=== PATIENT | male | born 1940 | race Caucasian/White ===

== ENCOUNTER 2016-08-22 07:18 | Day surgery (SDC) | payer MEDICARE, OTHER ==
[2016-08-22] MEDS ORDERED: Lactated Ringers 1,000 ML IV SCH (08:15)
[2016-08-22] MEDS ORDERED: Midazolam 1 MG/ML 2 ML SDV IV ONE (08:30)
[2016-08-22] MEDS ORDERED: Lidocaine 2% 100 MG/5 ML Syringe IVPUSH ONE (08:30)
[2016-08-22] MEDS ORDERED: Propofol 200 MG/20 ML SDV IV ONE (08:30)
--- NOTE | 2016-08-22 09:09 | PCM.OPNOTE ---
- General Post-Op/Procedure Note Date of Surgery/Procedure: 08/22/16 Operative Procedure(s): c scope Findings: normal colon Pre Op Diagnosis: screening Post-Op Diagnosis: nl scope Anesthesia Technique: MAC Primary Surgeon: Cong Weller Anesthesia Provider: Lizz Sarmiento Complications: None Condition: Good Free Text/Narrative:: see dictation
--- NOTE | 2016-08-22 09:30 | OR ---
DATE OF OPERATION: 08/22/2016 SURGEON: Cong Weller MD PROCEDURE PERFORMED: Colonoscopy. PREOPERATIVE DIAGNOSIS: Screening C-scope. POSTOPERATIVE DIAGNOSIS: Normal colon. INDICATIONS FOR PROCEDURE: This is a 76-year-old white male who presents for a followup colonoscopy. He was offered and accepted same. DESCRIPTION OF OPERATION: After an excellent IV sedation was administered, digital rectal exam was performed. No marked abnormality was noted. Flexible colonoscope was inserted and advanced to the cecum. The prep was good. There were some areas of stool, but we were able to irrigate and clear, and get an excellent view of the mucosa. The following findings were noted. Ascending colon, unremarkable. Transverse colon, unremarkable. Descending colon, unremarkable. Sigmoid and rectum, unremarkable. Colon was deflated as the scope was removed. The patient tolerated the procedure well and was taken to recovery room in good condition. /[id number] /MODL
[2016-08-22 09:33] VITALS: BP 136/71
== END 2016-08-22 10:07 | disposition home or self-care (01) ==
LOC: FB.SDS 07:18
PROVIDERS: ATTEND Surgery
DX: Z12.11 Encounter for screening for malignant neoplasm of colon (principal); Z86.010 Personal history of colon polyps; E66.9 Obesity, unspecified; Z68.30 Body mass index [BMI] 30.0-30.9, adult; E78.1 Pure hyperglyceridemia; E11.42 Type 2 diabetes mellitus with diabetic polyneuropathy; I10 Essential (primary) hypertension; I73.9 Peripheral vascular disease, unspecified; E79.0 Hyperuricemia without signs of inflammatory arthritis and tophaceous disease; E78.5 Hyperlipidemia, unspecified; N40.1 Benign prostatic hyperplasia with lower urinary tract symptoms; N13.8 Other obstructive and reflux uropathy; Z88.8 Allergy status to other drugs, medicaments and biological substances; Z79.01 Long term (current) use of anticoagulants; Z79.899 Other long term (current) drug therapy; G47.33 Obstructive sleep apnea (adult) (pediatric); G47.10 Hypersomnia, unspecified; Z94.0 Kidney transplant status; Z94.4 Liver transplant status; Z90.49 Acquired absence of other specified parts of digestive tract; Z96.60 Presence of unspecified orthopedic joint implant; F17.210 Nicotine dependence, cigarettes, uncomplicated
CPT/HCPCS: 00902; 82962; G0105; J2250; J2704; J7120

== ENCOUNTER 2017-02-19 11:54 | Inpatient (IN) | payer MEDICARE, OTHER ==
[2017-02-19] MEDS ORDERED: Albuterol 8 GM Inhaler INH PRN (17:19)
[2017-02-19] MEDS ORDERED: Warfarin Sliding Scale PO SCH (17:45)
[2017-02-19] MEDS: Acetaminophen 500 MG Tab PO SCH ×2 (17:46→23:49)
--- NOTE | 2017-02-19 18:24 | PCM.HP ---
H&P History of Present Illness - General Date of Service: 02/19/17 Admit Problem/Dx: Admission Diagnosis/Problem Admission Diagnosis/Problem Weakness Source of Information: Patient, Old Records History Limitations: Reports: No Limitations - History of Present Illness Initial Comments - Free Text/Narative: This is a 76-year-old male patient was transferred to [facility]. He was initially sent him to [place] because of a pneumonia and found to have a lung mass. He was treated and sent home. He felt very weak and went back of the hospital in [place] got readmitted. Then he went home on home health and then start him chest pain and and at the hospital again. He was ruled out for cardiac disease and they felt the troponins possibly due to his chronic kidney failure. He has a history of kidney and liver transplant. He has shortness of breath little cough and occasional little sputum that's pinkish. He's not any antibodies. He is so weak he is here for rehabilitation and strengthening. - Related Data Allergies/Adverse Reactions: Allergies Allergy/AdvReac Type Severity Reaction Status Date / Time meperidine [From Demerol] Allergy Nausea Verified 02/19/17 15:37 Fojwxlj-Ply-Wff Reductase Allergy Other Verified 02/19/17 15:37 Inhibitor Home Medications: Home Meds Albuterol [IJD: Ventolin HFA] 2 puff INH Q4H PRN 08/21/16 [History] Magnesium Oxide [Magnesium] 500 mg PO DAILY 08/21/16 [History] Metoprolol Tartrate [Lopressor] 12.5 mg PO DAILY 08/21/16 [History] Mycophenolate Mofetil [Cellcept] 1,000 mg PO BID 08/21/16 [History] Tacrolimus [Prograf] 1 mg PO Q12H 08/21/16 [History] Warfarin [Coumadin] 5 mg PO MOWEFR 08/21/16 [History] Acetaminophen 500 mg PO Q6H 02/19/17 [History] Umeclidinium Brm/Vilanterol Tr [Anoro Ellipta 62.5-25 Mcg INH] 1 puff IH BEDTIME 02/19/17 [History] Warfarin [Coumadin] 2.5 mg PO SUTUTHSA 02/19/17 [History] oxyCODONE 5 mg PO Q4H PRN 10/26/17 [History] Past Medical History HEENT History: Reports: Impaired Vision, Other (See Below) 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 Cardiovascular History: Reports: Blood Clots/VTE/DVT, High Cholesterol, Hypertension, PVD Respiratory History: Reports: Other (See Below) Other Respiratory History: lung cander Gastrointestinal History: Reports: Cirrhosis, Other (See Below) Other Gastrointestinal History: HX OF BUDD-CHIARI Genitourinary History: Reports: Prostate Disorder, Renal Disease, Retention, Urinary MATERIAL DISPATCHER History: Reports: None Musculoskeletal History: Reports: None Neurological History: Reports: None Psychiatric History: Reports: None Endocrine/Metabolic History: Reports: Diabetes, Type II, Obesity/BMI 30+ Hematologic History: Reports: Anticoagulation Therapy, Blood Transfusion(s) Immunologic History: Reports: Solid Organ Transplant Other Immunologic History: HX LIVER ET KIDNEY TRANSPLANT Oncologic (Cancer) History: Reports: None Dermatologic History: Reports: None - Infectious Disease History Infectious Disease History: Reports: Chicken Pox, Influenza, Measles - Past Surgical History Head Surgeries/Procedures: Reports: None HEENT Surgical History: Reports: None, Other (See Below) Respiratory Surgical History: Reports: Lung Biopsies Male Surgical History: Reports: TURP-Transurethral Resection of Prostate Musculoskeletal Surgical History: Reports: Joint Replacement Social & Family History - Family History HEENT: Reports: None Cardiac: Reports: VT - Tobacco Use Smoking Status *Q: Former Smoker Years of Tobacco use: 40 Used Tobacco, but Quit: Yes Month Tobacco Last Used: 1 week ago - Caffeine Use Caffeine Use: Reports: Coffee - Recreational Drug Use Recreational Drug Use: No Drug Use in Last 12 Months: No H&P Review of Systems - Review of Systems: Review Of Systems: See Below General: Reports: Weakness, Fatigue, Decreased Appetite HEENT: Reports: Other (Rhinorrhea) Pulmonary: Reports: Shortness of Breath, Cough, Sputum Cardiovascular: Reports: Chest Pain (That's improving), Dyspnea on Exertion. Denies: Edema Gastrointestinal: Reports: Diarrhea Genitourinary: Reports: No Symptoms Musculoskeletal: Reports: No Symptoms Skin: Reports: No Symptoms Psychiatric: Reports: No Symptoms Neurological: Reports: No Symptoms Hematologic/Lymphatic: Reports: No Symptoms Immunologic: Reports: No Symptoms Exam - Exam Exam: See Below - Vital Signs Vital Signs: Last Vital Signs Temp 97.7 F 02/19/17 15:21 Pulse 81 02/19/17 15:21 Resp 20 10/26/17 15:21 BP 125/65 02/19/17 15:21 Pulse Ox 98 02/19/17 15:21 Weight: 165 lb - Exam Quality Assessment: Supplemental Oxygen General: Alert, Oriented, Cooperative, Severe Distress HEENT: Hearing Intact, Posterior Pharynx Clear, TMs Clear Neck: Supple, Trachea Midline Lungs: Normal Respiratory Effort, Decreased Breath Sounds (left) Cardiovascular: Regular Rate, Regular Rhythm. No: Systolic Murmur GI/Abdominal Exam: Normal Bowel Sounds, Soft, Non-Tender, No Distention Extremities: Normal Range of Motion, No Pedal Edema Skin: Warm, Intact Neuro Extensive - Mental Status: Alert, Oriented x3, Normal Mood/Affect, Normal Cognition - Patient Data Lab Results Last 24 hrs: Laboratory Results - last 24 hr 02/19/17 Range/Units 17:06 POC Glucose 103 (80-116) mg/dL *Q Meaningful Use (ADM) - VTE *Q VTE Criteria *Q: - Stroke *Q Stroke Criteria *Q: - AMI *Q AMI Criteria *Q: - Problem List (1) Lung cancer SNOMED Code(s): 240868452 ICD Code: C34.90 - MALIGNANT NEOPLASM OF UNSP PART OF UNSP BRONCHUS OR LUNG Status: Acute Current Visit: Yes (2) Chest pain SNOMED Code(s): 03222184 ICD Code: R07.9 - CHEST PAIN, UNSPECIFIED Status: Acute Current Visit: Yes (3) Chronic kidney disease SNOMED Code(s): 469241412 ICD Code: N18.9 - CHRONIC KIDNEY DISEASE, UNSPECIFIED Status: Acute Current Visit: Yes Problem List Initiated/Reviewed/Updated: Yes Orders Last 24hrs: Active Orders 24 hr Category Date Time Status Patient Status [ADT] Routine ADT 02/19/17 15:23 Active Anticoag Warfarin Education *Q [RC] DAILY Care 02/19/17 15:22 Active Blood Glucose Check, Bedside [RC] QIDACANDBED Care 02/19/17 15:22 Active Oxygen Therapy [RC] PRN Care 02/19/17 15:23 Active Up ad Christine [RC] ASDIRECTED Care 02/19/17 15:22 Active VTE/DVT Education [RC] Per Unit Routine Care 02/19/17 15:23 Active Vital Signs [RC] DAILY Care 02/19/17 15:23 Active Consult to Bead Picker [CONS] Routine Cons 02/19/17 15:22 Active OT Evaluation and Treatment [CONS] Routine Cons 02/19/17 15:22 Active PT Evaluation and Treatment [CONS] Routine Cons 02/19/17 15:22 Active Respiratory Care Assess and Treatment [CONS] Routine Cons 02/19/17 15:22 Active Consistent Carbohydrate Diet [DIET] Diet 02/19/17 Lunch Active INR,PT,PROTHROMBIN TIME [COAG] DAILY Lab 02/20/17 06:00 Ordered INR,PT,PROTHROMBIN TIME [COAG] DAILY Lab 02/21/17 06:00 Ordered INR,PT,PROTHROMBIN TIME [COAG] DAILY Lab 02/22/17 06:00 Ordered INR,PT,PROTHROMBIN TIME [COAG] DAILY Lab 02/23/17 06:00 Ordered INR,PT,PROTHROMBIN TIME [COAG] DAILY Lab 02/24/17 06:00 Ordered INR,PT,PROTHROMBIN TIME [COAG] DAILY Lab 02/25/17 06:00 Ordered INR,PT,PROTHROMBIN TIME [COAG] DAILY Lab 02/26/17 06:00 Ordered INR,PT,PROTHROMBIN TIME [COAG] Routine Lab 02/21/17 06:00 Ordered Acetaminophen [Tylenol Extra Strength] Med 02/19/17 18:00 Active 500 mg PO Q6H Albuterol [Ventolin HFA] Med 02/19/17 17:19 Active 0 gm INH Q4H PRN Magnesium Oxide Med 02/20/17 09:00 Active 400 mg PO DAILY Metoprolol Tartrate [Lopressor] Med 02/20/17 09:00 Active 12.5 mg PO DAILY Mycophenolate Mofetil [Cellcept] Med 02/19/17 21:00 Active 1,000 mg PO BID Tacrolimus [Prograf] Med 02/19/17 21:00 Active 1 mg PO Q12H Umeclidinium Brm/Vilanterol Tr [Anoro Ellipta 62.5-25 Med 02/20/17 21:00 Pending Mcg INH] 1 puff IH BEDTIME Warfarin Sliding Scale [Coumadin Sliding Scale] Med 02/19/17 17:45 Pending 1 each PO ASDIRECTED oxyCODONE Med 02/19/17 17:19 Active 5 mg PO Q4H PRN Resuscitation Status Routine Resus Stat 02/19/17 15:22 Ordered Medication Orders Acetaminophen (Tylenol Extra Strength) 500 mg PO Q6H [facility] Last Admin: 02/19/17 17:46 Dose: 500 mg Albuterol (Ventolin Hfa) 0 gm INH Q4H PRN PRN Reason: Shortness of Breath Magnesium Oxide (Magnesium Oxide) 400 mg PO DAILY [facility] Metoprolol Tartrate (Lopressor) 12.5 mg PO DAILY [facility] Non-Formulary Medication (Mycophenolate Mofetil [Cellcept]) 1,000 mg PO BID [facility] Non-Formulary Medication (Umeclidinium Brm/Vilanterol Tr [Anoro Ellipta 62.5-25 Mcg Inh]) 1 puff IH BEDTIME [facility] Oxycodone HCl (Oxycodone) 5 mg PO Q4H PRN PRN Reason: MODERATE PAIN Tacrolimus (Prograf) 1 mg PO Q12H GLORIA Warfarin Sodium (Coumadin Sliding Scale) 1 each PO ASDIRECTED [facility] Assessment/Plan Comment:: On. Admit to swing bed for PT/OT for strengthening. 2. Patient states he will follow-up Raud[place] with oncology to see what is going to do but his lung mass. 3. Regular diet. 4. Continue his home medications. 5. Oxygen nasal cannula keep sets greater than 90% 6. Pharmacy to manage INR.
[2017-02-19] MEDS: Tacrolimus 1 MG Cap PO SCH (20:07)
[2017-02-19] MEDS ORDERED: Mycophenolate Mofetil 250 MG Cap PO ONE (21:00)
[2017-02-19] MEDS ORDERED: MYCOPHENOLATE MOFETIL 1000 MG PO SCH (21:00)
[2017-02-20] MEDS: Acetaminophen 500 MG Tab PO SCH ×3 (06:18→18:03)
[2017-02-20] MEDS: Mycophenolate Mofetil 250 MG Cap PO SCH ×2 (08:44→21:21)
[2017-02-20] MEDS: Metoprolol Tartrate 25 MG Tab PO SCH (08:44)
[2017-02-20] MEDS: Magnesium Oxide 400 MG Tab PO SCH (08:45)
[2017-02-20] MEDS: Tacrolimus 1 MG Cap PO SCH ×2 (08:45→21:23)
[2017-02-20] MEDS ORDERED: Warfarin 5 MG Tab PO SCH (16:00)
[2017-02-20] MEDS: Umeclidinium Brm/Vilanterol Tr 62.5-25 MCG 30 Puff Inhaler IH SCH (21:20)
[2017-02-21] MEDS: Acetaminophen 500 MG Tab PO SCH ×4 (00:44→18:50)
[2017-02-21] MEDS: Mycophenolate Mofetil 250 MG Cap PO SCH ×2 (08:17→21:24)
[2017-02-21] MEDS: Metoprolol Tartrate 25 MG Tab PO SCH (08:18)
[2017-02-21] MEDS: Magnesium Oxide 400 MG Tab PO SCH (08:18)
[2017-02-21] MEDS: Tacrolimus 1 MG Cap PO SCH ×2 (08:19→21:24)
[2017-02-21] MEDS: oxyCODONE 5 MG Tab PO PRN (08:26)
[2017-02-21] MEDS ORDERED: Warfarin 2.5 MG Tab PO SCH (16:00)
[2017-02-21] MEDS: Umeclidinium Brm/Vilanterol Tr 62.5-25 MCG 30 Puff Inhaler IH SCH (21:23)
[2017-02-21] MEDS: Melatonin 3 MG Tab PO SCH (21:28)
[2017-02-22] MEDS: Acetaminophen 500 MG Tab PO SCH ×4 (00:04→17:57)
[2017-02-22] MEDS: oxyCODONE 5 MG Tab PO PRN (07:56)
[2017-02-22] MEDS: Metoprolol Tartrate 25 MG Tab PO SCH (08:40)
[2017-02-22] MEDS: Magnesium Oxide 400 MG Tab PO SCH (08:40)
[2017-02-22] MEDS: Mycophenolate Mofetil 250 MG Cap PO SCH ×2 (08:40→20:42)
[2017-02-22] MEDS: Tacrolimus 1 MG Cap PO SCH ×2 (08:40→20:43)
[2017-02-22] MEDS: Umeclidinium Brm/Vilanterol Tr 62.5-25 MCG 30 Puff Inhaler IH SCH (20:41)
[2017-02-22] MEDS: Melatonin 3 MG Tab PO SCH (20:42)
[2017-02-23] MEDS: Acetaminophen 500 MG Tab PO SCH ×4 (00:07→17:08)
[2017-02-23] MEDS: Mycophenolate Mofetil 250 MG Cap PO SCH ×2 (08:47→20:18)
[2017-02-23] MEDS: Metoprolol Tartrate 25 MG Tab PO SCH (08:47)
[2017-02-23] MEDS: oxyCODONE 5 MG Tab PO PRN (08:47)
[2017-02-23] MEDS: Magnesium Oxide 400 MG Tab PO SCH (08:48)
[2017-02-23] MEDS: Tacrolimus 1 MG Cap PO SCH ×2 (08:48→20:18)
[2017-02-23] MEDS: Umeclidinium Brm/Vilanterol Tr 62.5-25 MCG 30 Puff Inhaler IH SCH (20:18)
[2017-02-23] MEDS: Melatonin 3 MG Tab PO SCH (20:19)
[2017-02-24] MEDS: Acetaminophen 500 MG Tab PO SCH ×4 (00:54→18:10)
[2017-02-24] MEDS: oxyCODONE 5 MG Tab PO PRN (07:49)
[2017-02-24] MEDS: Mycophenolate Mofetil 250 MG Cap PO SCH ×2 (08:25→20:05)
[2017-02-24] MEDS: Metoprolol Tartrate 25 MG Tab PO SCH (08:26)
[2017-02-24] MEDS: Tacrolimus 1 MG Cap PO SCH ×2 (08:26→20:07)
[2017-02-24] MEDS: Magnesium Oxide 400 MG Tab PO SCH (08:26)
[2017-02-24] MEDS ORDERED: Warfarin 2.5 MG Tab PO SCH (16:00)
[2017-02-24] MEDS: Umeclidinium Brm/Vilanterol Tr 62.5-25 MCG 30 Puff Inhaler IH SCH (20:05)
[2017-02-24] MEDS: Melatonin 3 MG Tab PO SCH (20:07)
[2017-02-25] MEDS: Acetaminophen 500 MG Tab PO SCH ×3 (00:49→12:39)
[2017-02-25] MEDS: Metoprolol Tartrate 25 MG Tab PO SCH (09:00)
[2017-02-25] MEDS: Mycophenolate Mofetil 250 MG Cap PO SCH (09:00)
[2017-02-25] MEDS: Magnesium Oxide 400 MG Tab PO SCH (09:01)
[2017-02-25 09:05] VITALS: BP 125/79
[2017-02-25] MEDS: Tacrolimus 1 MG Cap PO SCH (09:59)
[2017-02-25] MEDS ORDERED: Warfarin 2.5 MG Tab PO SCH (16:00)
--- NOTE | 2017-02-25 22:19 | DISCH ---
DISCHARGE DATE: 02/25/2017 REASON FOR ADMISSION: 1. Lung cancer. 2. Atypical chest pain. 3. COPD. 4. Obstructive sleep apnea. 5. Pneumonia. 6. General weakness and deconditioning. 7. History of liver and kidney transplant. 8. Chronic kidney disease. DISCHARGE DIAGNOSES: 1. Lung cancer. 2. Atypical chest pain. 3. Chronic obstructive pulmonary disease. 4. Obstructive sleep apnea. 5. Pneumonia. 6. General weakness and deconditioning. 7. History of liver and kidney transplant. 8. Chronic kidney disease. CONSULTATIONS: None except Physical and Occupational Therapy. BRIEF HISTORY: This is a 76-year-old male, who was brought in from [place] for strengthening. He had been admitted in [place] because of chest pain and pneumonia, found also to have lung cancer. He was admitted for strengthening and physical rehab. He is ready to go home today. Pain is controlled by oxycodone. 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 DISCHARGE MEDICATIONS: 1. Oxycodone 5 mg every 4 hours p.r.n. 2. Melatonin 6 mg at bedtime. 3. Magnesium oxide 400 mg daily. 4. Albuterol p.r.n. 5. CellCept 1000 mg p.o. daily. 6. Metoprolol 12.5 mg daily. 7. Tacrolimus 1 mg p.o. every 12 hours. 8. Umeclidinium and vilanterol 1 inhalation at bedtime. 9. Coumadin 1.25 mg daily at 1600 hours. FOLLOWUP: He will see Hematology/Oncology on the 02 of March, on Thursday and also has an appointment with his PCP on 16 of March. I spent more than 35 minutes in the discharge of the patient. /[id number] ANGELIQUE/KATHY
== END 2017-02-25 13:05 | disposition home health service (06) | DRG 948 ==
LOC: FB.MS 15:20
PROVIDERS: ADMIT Family Medicine; ATTEND Family Medicine
DX: R53.1 Weakness (principal); Z94.0 Kidney transplant status; Z94.4 Liver transplant status; C34.90 Malignant neoplasm of unspecified part of unspecified bronchus or lung; I12.9 Hypertensive chronic kidney disease with stage 1 through stage 4 chronic kidney disease, or unspecified chronic kidney disease; E11.22 Type 2 diabetes mellitus with diabetic chronic kidney disease; N18.9 Chronic kidney disease, unspecified; Z87.891 Personal history of nicotine dependence; Z66 Do not resuscitate; Z88.8 Allergy status to other drugs, medicaments and biological substances; Z86.718 Personal history of other venous thrombosis and embolism; J44.9 Chronic obstructive pulmonary disease, unspecified; R07.89 Other chest pain; G47.33 Obstructive sleep apnea (adult) (pediatric); Z87.01 Personal history of pneumonia (recurrent); H54.61 Unqualified visual loss, right eye, normal vision left eye; Z79.01 Long term (current) use of anticoagulants
CPT/HCPCS: 36415; 82962; 85610; 97116-GP; 97161-GP; 97166-GO; 97530-GO; 97530-GO-KX; 97535-GO; A9270-GY